=== PATIENT | female | born 1940 | race Caucasian/White ===

== ENCOUNTER 2022-05-30 11:29 | Outpatient (CLI) | payer OTHER, SELFPAY ==
[2022-05-30 11:32] VITALS: BP 160/66; PULSE 74; RESP 16; O2SAT 96
[2022-05-30] MEDS: TETRACAINE 0.5% OPHTH 1 DROP EYE-BOTH ×3 (11:47→12:11)
[2022-05-30] MEDS: BRIMONIDINE TARTRATE 0.2% OPHTH 1 DROP EYE-BOTH ×2 (11:49→12:22)
--- NOTE | 2022-05-30 12:27 | P.OPTPRC_ITS ---
Procedure Note Date of procedure: 05/30/22 Will [facility] bill your pro fee for this procedure?: Yes Procedure Description: SURGEON: Sagrario Núñez MD PREOPERATIVE DIAGNOSIS: Posterior capsular opacity, right and left eye POSTOPERATIVE DIAGNOSIS: Posterior capsular opacity, right and left eye PROCEDURE: YAG laser capsulotomy, both eyes ANESTHESIA: Topical. ESTIMATED BLOOD LOSS: None PATHOLOGY SPECIMEN: None COMPLICATIONS: None INDICATIONS: See consult note for details. The risks, benefits and alternatives of the procedure were explained to the patient, who elected to proceed and signed informed consent to do so. PROCEDURE: The patient was brought to the pre-holding area where the right and left eyes were identified as the operative eyes. I placed my initials above the eyes. The following was given in both eyes: The patient received 2 sets of 1 drop of 0.5% tetracaine and 1 drop of 1% tropicamide. They also received 1 drop of 0.2% brimonidine. They received 1 drop of 0.5% tetracaine immediately prior to bringing them back for the procedure. The patient was then brought to the procedure room where the right and left eyes were again identified as the operative eyes. A YAG Maurizio capsulotomy lens was placed on the right eye. The laser was administered using a total number of 6 shots with an energy of 2.4 mJ per shot for a total energy of 14 mJ. The patient tolerated the procedure well. A YAG Maurizio capsulotomy lens was placed on the left eye. The laser was administered using a total number of 4 shots with an energy of 2.4 mJ per shot for a total energy of 10 mJ. The patient tolerated the procedure well. DISPOSITION: The patient was taken back to the pre-holding area and given 1 drop of 0.2% brimonidine in both eyes. They were discharged to home in stable condition. The patient was instructed to call me or go to the emergency de partment with any sudden change, including dramatic loss of vision, severe pain in the eye or eyebrow region, nausea, or vomiting. The patient was instructed to use the 0.2% brimonidine 1 drop 2 times a day in both eyes for 1 week. The patient will follow up in the clinic in 1-2 weeks. Surgeon: Sagrario Núñez MD
== END 2022-05-30 12:23 | disposition home or self-care (01) ==
LOC: OP CLINIC 11:31
PROVIDERS: Visit Provider Ophthalmology
DX: H26.9 Unspecified cataract (principal)
CPT/HCPCS: 66821; A9270

== ENCOUNTER 2024-12-30 13:06 | Outpatient (CLI) | payer OTHER, SELFPAY | END 2024-12-30 13:07 | disposition home or self-care (01) | LOC: AMB 01-04 16:21 | PROVIDERS: Visit Provider Family Medicine | DX: R42 Dizziness and giddiness (principal); R07.89 Other chest pain | CPT/HCPCS: A0425; A0433 ==

== ENCOUNTER 2024-12-30 13:47 | Inpatient (IN) | payer OTHER, SELFPAY ==
[2024-12-30] VITALS (40 sets, daily range): BP systolic 99–148; BP diastolic 45–102; PULSE 56–137; RESP 10–18; TEMP 36.2–36.7; O2SAT 96–98; BMI 24.2; BMI 24.3; BMI 24.4
--- OUTSIDE RECORDS SUMMARY | 2024-12-30 13:49 | XMS_ITS | Clinical Summary ---
Author Organization [facility] Address [address] [place] [address] Care Team Providers Care Pediatric Pathologist Name Role Phone Eileen Chacon M.D. Primary Care Pro vider Source Comments Patient records contain information from all sites at [facility]. For routine questions regarding patient records, call [phone] during business hours, M-F 8:00 AM - 5:00 PM Central Time. Record requests for emergency care only can be directed to [phone] at any time.[facility] Allergies Active Allergy Reactions Criticality Noted Date Comments Lactose Diarrhea 04/23/2012 Medications aspirin [address] tablet Take 81 mg by mouth daily. Active multivitamin tablet Take 1 tablet by mouth daily. Active loratadine (for_CLARITIN) 10 mg tablet Take 10 mg by mouth daily. Active acetaminophen (TYLENOL) 500 mg tablet Take 500 mg by mouth every 6 (six) hours as needed for pain. Active vitamins A,C,E-zinc-jessica er (PRESERVISION AREDS) 7,160 Units-113 mg-100 Units per tablet Take 1 tablet by mouth 2 (two) times a day. Active alendronate (Fosamax) 70 mg tablet Take 1 tablet (70 mg total) by mouth once a week. Take with 8oz of water, on an empty stomach. Remain upright for 30min. 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 Med Refill 10/19/2024 2:30 PM CDT Office Visit Department of Family Medicine, [facility], in [address] [place] [address] Post, Ronald Ennis APRN, C.N.P. Onychomycosis (Primary Dx); Hypertrophied Nail Discharge Disposition: Home or Self Care from Last 3 Months Immunizations Immunization Administration Dates Next Due IPV 10/16/2004 PCV13 07/09/2018 PPSV23 01/10/2010,10/16/2004 RZV (SHINGRIX) 01/10/2023(Deferred: Patient dec ision) SARS-COV-2 (COVID-19) - MODE RNA (12 YEARS AND OLDER) Fall Seasonal 03/19/2023 SARS-COV-2 (COVID-19) - MODERNA(Discontinued) 01/10/2023(Deferred: Patient decision),06/17/2020,05/20/2020 Tdap 08/25/2020,10/18/2004 YF 10/16/2004 influenza trivalent high dos e (HD)(PF) 01/10/2023(Deferred: Patient decision) Family History Medical History Relation Name Comments Osteoarthritis Brother Kenya No Known Problems Daughter 2 Tamela Hearing loss Father Bebeto Lung cancer Father Bebeto Hypertension Mother Chitra Glaucoma Sister Taylor Heart murmur Sister Taylor Had breast canc er removed July of 2024 Bipolar disorder Son 1 John Guillain-[place] syndrome Son 1 John No Known Problems Son 2 Ramesh No Known Problems Son 3 Edward Relation Name Status Comments Brother Kenya Alive Daughter 1 Neeta Alive Daughter 2 Tamela Alive Father Bebeto Mother Chitra Sister Taylor Alive Son 1 John Alive Son 2 Ramesh Alive Son 3 Edward Alive Social History Tobacco Use Types Packs/Day Years Used Date Smoking Tobacco: Former Cigarettes Q uit: 04/01/1972 Smokeless Tobacco: Never Tobacco Cessation:Counseling Given: Not Answered Alcohol Use Standard Drinks/Week Comments Yes 4 (1 standard drink = 0.6 oz pur e alcohol) My drinking is 1 or2 a month [facility] [employer] Answer Date Recorded In the past 12 months has e electric, gas, oil, or water [employer] threatened to shut off services in your home? No 01/21/2024 Humiliation, Afraid, Rape, and Kick questionnair e Answer Date Recorded Within the last year, have y ou been afraid of your partner or ex-partner? No 01/10/2023 Within the last year, have y ou been humiliated or emotionally abused in other ways by your partner or ex-partner? No Within the last year, have y ou been kicked, hit, slapped, or otherwise physically hurt by your partner or ex-partner? No 01/10/2023 Within the last year, have y ou been raped or forced to have any kind of sexual activity by your partner or ex-partner? No 01/10/2023 Hunger Vital Sign Answer Date Recorded Within the past 12 months, y ou worried that your food would run out before you got the money to buy more. Never true 01/21/20 24 Within the past 12 months, t he food you bought just didn't last and you didn't have money to get more. Never true 01/21/2024 PRAPARE - Transportation Answer Date Re corded In the past 12 months, has l ack of transportation kept you from medical appointments or from getting medications? No 12/31 In the past 12 months, has l ack of transportation kept you from meetings, work, or from getting things needed for daily living? No 01/21/2024 Housing Stability Answer Date Recorded What is your living situation today? 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 Gender Identity Female 11/05/2022 4:38 PM CDT Sexual Orientation Not on file Occupation Industry Job Start Date Job End Date Not on file Not on file Not on file Not on file Last Filed Vital Signs Vital Sign Reading Time Taken Comments Blood Pressure 134/65 10/19/2024 2:01 PM CDT Pulse 63 10/19/2024 2:01 PM CDT Temperature 36.1 C (97 F) 10/19/2024 2:01 PM CDT Respiratory Rate 16 08/13/2024 3:11 PM CDT Oxygen Saturation 97% 01/10/2023 10:35 AM CDT Inhaled Oxygen Concentration - - Weight 71.8 kg (158 lb 4.6 oz) 10/19/2024 2:01 P M CDT Height 169 cm (5' 6.54) 10/19/2024 2:01 PM CDT Body Mass Index 25.14 10/19/2024 2:01 PM CDT Plan of Treatment Health Maintenance Due Date Last Done Comments CT Colonography 1940 FIT 1940 Zoster Vaccines (1 of 2) 1990 IPV Vaccines (2 of 3 - Adult catch-up series) 11/13/2004 10/16/2004 RSV vaccine - (32-3 6 weeks) or 60+ years (1 - 1-dose 75+ series) 10/10/2015 Colonoscopy 11/15/2015 11/14/2005 Cologuard 07/21/2022 07/22/2019, 04/26/2016 COVID-19 Vaccine (5 - 2024-2 6 season) 2024 03/19/2023, 02/01/2021, 06/17/2020, Additional history exists Influenza Vaccine (#1) 2024 02/24/2024 Fasting Glucose for Diabetes Screening 08/13/2025 08/13/2024, 11/06/2022, 08/24/2021, Additional history exists Visit: Medicare Annual Wellness 08/14/2025 Visit: Annual, age 65+ (or Medicare and <65) 10/19/2025 10/19/2024 DTaP,Tdap,and Td Vaccines (3 - Td or Tdap) 08/25/2030 08/25/2020, 10/18/2004 Pneumococcal vaccine (50+ years) Completed 07/09/2018, 01/10/2010, 10/16/2004 Fall Risk Screen (Annual) Completed 05/07/2024 Depression Screening (Annual PHQ-2) Completed 08/13/2024, 08/10/2024 Colorectal Cancer Screening Discontinued Procedures Procedure Name Priority Date/Time Associated Diagnosis Comments GLUCOSE, FASTING, S/P Routine 08/13/2024 11:40 AM CDT Screening Examination Diabetes Mellitus COLOGUARD Routine 07/22/2019 8:05 AM CDT Screening Cancer Colon from Last 3 Months or Most Recently Relevant to Health Maintenance Results * (ABNORMAL) Glucose, Fasting (08/13/2024 11:40 AM CDT) Glucose, P 105(H) 70 - 100 mg/dL 08/13/2024 1:53 PM CDT LKCY Last Intake 17 hr 08/13/2024 11:43 AM CDT CNFL Blood (Blood, Venous) 08/13/2024 11:40 AM CDT 08/13/2024 11:43 AM CDT Eileen Marshall M.D. LAB BLOOD NON ADD -ON Final Result [facility] [address] [place] [id number], [facility] LK[facility] in [place] [address] [place] [address] CNFL [facility] in [address] [address] * Cologuard (07/22/2019 8:05 AM CDT) Result Negative Not Applicable 07/25/2019 10:20 AM CDT EXLI Comment: A negative result indicates a low likelihood that a colorectal cancer (CRC) or an advanced adenoma (adenomatous polyps with more advanced pre-malignant features) is present. The chance that a person with a negative Cologuard test has a colorectal cancer is less than 1 in 1500 (negative predictive value >99.9%) or has an advanced adenoma is less than 5.3% (negative predictive value 94.7%). These data are based on a prospective cross-sectional screening study of 10,000 individuals at average risk for colorectal cancer who were screened with both Cologuard and colonoscopy. (Juan Platt al, N Engl J Med 2014;370(14):0008-4012) The normal value (reference range) for this assay is negative. COLOGUARD RE-SCREENING RECOMMENDATION: Periodic routine colorectal cancer screening is an important part of preventive healthcare for asymptomatic persons at average risk for colorectal cancer. Following a negative Cologuard result, the Canadian Cancer Society and U.S. Multi-Society Task Force screening guidelines recommend a Cologuard re-screening interval of 3 years. References: Canadian Cancer Society (ACS). Colorectal cancer prevention and early detection. [place], [place]: Canadian Cancer Society; [updated 2015Jul 23]. https://www.cancer.org/cancer/uejzb-sqncdr-wiojzx/detection- diagnosis-staging/acs-recommendations.html. Accessed November 29, 2017; Matthieu DK, Mario CR, Andrea ZacariasK, Colorectal Cancer Screening: Recommendations for Physicians and Patients from the U.S. Multi-Society Task Force on Colorectal Cancer Screening, Am J Gastroenterology 2017; 112:4709-2846. TEST TYPE: Composite algorithmic analysis of stool DNA-biomarkers with hemoglobin immunoassay. Quantitative values of individual biomarkers are not reportable and are not associated with individual biomarker result reference ranges. PRECAUTIONS AND LIMITATIONS: Cologuard is intended for colorectal cancer screening of adults of either sex, 45 years or older, who are at average-risk for colorectal cancer (CRC). Cologuard has been approved for use by the U.S. FDA. Cologuard may produce a false negative or false positive result. A negative Cologuard test result does not guarantee the absence of CRC or advanced adenoma (pre-cancer). Patients with a negative Cologuard test result should be advised to continue participating in a colorectal cancer screening program. The screening interval for Cologuard is currently recommended at an interval of every 3 years by the Canadian Cancer Society and U.S. Multi-Society Task Force. A false positive result occurs when Cologuard produces a positive result, even though a colonoscopy may not find colorectal cancer or precancerous polyps. The performance of Cologuard has been established in a cross sectional study (i.e., single point in time) of average-risk adults aged 50-84. Cologuard performance in patients ages 45 to 49 years was estimated by sub-group analysis of near-age groups. Cologuard performance data in a 10,000 patient pivotal study using colonoscopy as the reference method can be accessed at the following location: www.[employer]/results. Additional description of the Cologuard test process, warnings and precautions can be found at www.cologuardtest.com. Rx only. Stool (Stool) 07/22/2019 8:0 5 AM CDT 07/23/2019 10:12 AM CDT us Eileen Marshall M.D. 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 See document viewer. Healthcare Agents on File Name Relationship Healthcare Agent Relationship Communication Alexi Smith Spouse Health Care Agent Neeta Daniellemagalie Daughter First Alternate Health Care Agent Care Teams Pediatric Pathologist Relationship Specialty Start Date End Date Eileen Chacon M.D. [id number] [phone] PCP - General 09/13/16 [facility] 01/10/23 [facility] Op[facility]mol[facility] Kiln Furniture Caster 01/10/23 [facility]aker 01/10/23
--- OUTSIDE RECORDS SUMMARY | 2024-12-30 13:50 | XMS_ITS | Clinical Summary ---
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 Gender Identity Not on file Sexual Orientation Not on file Last Filed Vital Signs Vital Sign Reading Time Taken Comments Blood Pressure 118/72 01/06/2014 10:15 AM CDT Pulse 76 01/06/2014 10:15 AM CDT Temperature - - Respiratory Rate - - Oxygen Saturation - - Inhaled Oxygen Concentration - - Weight - - Height - - Body Mass Index - - Plan of Treatment Health Maintenance Due Date Last Done Comments Tetanus booster 10/10/1951 Depression screening for age 12+ 1952 BMI (ht and wt on same day) for age 18+ 1958 Pneumococcal series for age 50+ (1 of 1 - PCV) 1990 Zoster (shingles) series for age 50+ (1 of 2) 1990 DEXA/DXA scan for age 65+ 2005 Medicare Wellness for age 65+ 2005 RSV vaccine for adults or (1 - 1-dose 75+ series) 10/10/2015 COVID-19 vaccine series ( season) 2024 03/19/2023, 02/01/2021, 06/17/2020, Additional history exists Influenza Vaccine (#1) 2024 Hepatitis B series for 19+ Aged Out N o longer eligible based on patient's age to complete this topic Insurance [employer] CHOICE PPO MR Care Teams A Auxiliary Relationship Specialty Start Date End [facility] [address] [place] [phone] PCP - General Family Practice 11/09/13 Ivy Pepe AuD [facility] [place] [address] Audiology 11/09/13
--- NOTE | 2024-12-30 14:09 | CRLHL7_ITS ---
For Patients: As a result of the Cures Act, medical imaging exams and procedure reports are released immediately into your electronic medical record. You may view this report before your referring provider. If you have questions, please contact your health care provider. INDICATION: Shortness of breath, hypertension TECHNIQUE: Chest 1 view. COMPARISON: None. FINDINGS: Cardiovasculature and mediastinum: Heart size is normal. Unremarkable mediastinum. Lungs and pleural spaces: Bibasal patchy opacities. No pleural effusion. No pneumothorax. Bones and soft tissues: No significant findings. IMPRESSION: Bibasal patchy opacities may represent pulmonary edema or infection in the appropriate clinical setting Dictated by Jaylyn Crocker MD @ 12/30/2024 3:24:25 PM (Electronically Signed)
--- NOTE | 2024-12-30 14:14 | ED_ITS ---
HPI - General Adult General Chief complaint: Syncope/Fainted Stated complaint: Hypotension Time Seen by Provider: 12/30/24 13:48 History of Present Illness HPI narrative: 84-year-old female was working at the [employer] and got dizzy. She has said she has has intermittent dizziness. She was told a co-worker to sit down. She did not notice any focal neurologic complaint or weakness other than the generalized weakness. She had no chest pain no tachycardia. No palpitations. She was noted by EMS when she is brought in by ambulance to be in AFib with a rapid rate. Her rates been between 137 and 160. She denies chest pain, denies shortness of breath denies leg swelling or edema or clotting problems. She is only on alendronate for home medication. No recent illnesses, cough, colds. She has never been told she has atrial fibrillation or other cardiac arrhythmia. She has no history of coronary artery disease by her knowledge. Related Data Home Medications ?Medication ?Instructions ?Recorded ?Confirmed alendronate 70 mg tablet 70 mg PO 12/30/24 Allergies Allergy/AdvReac Type Severity Reaction Status Date / Time No Known Drug Allergies Allergy Verified 12/30/24 15:43 Review of Systems Status of ROS: Reports: 6 or more systems reviewed and unremarkable except as noted in History and below [facility] Medical History (Updated 12/30/24 @ 15:45 by Brii Jean MD) Hyperlipidemia ?E78.5 - Hyperlipidemia, unspecified (ICD-10) Osteoporosis ?M81.0 - Age-related osteoporosis without current pathological fracture (ICD- 10) Exam Narrative: Exam Narrative: Objective: Patient is alert orient x3 no distress. Does not feel palpitations or tachycardia. Her heart rates 137-160. Irregularly regular with a widened complex QRS. HEENT is unremarkable, no cyanosis, no scleral icterus, no facial asymmetry Neck is supple Chest is clear Heart irregular regular 2/6 systolic murmur Abdomen benign soft Extremities are no edema neurologic nonfocal. Good peripheral perfusion noted Const: Vital Signs, click to edit/add: Vital Signs - 24 hr 12/30/24 14:02 Temperature 97.2 F L Pulse Rate [Pulse Oximeter] 137 H Respiratory Rate 18 Blood Pressure [Ri ght Upper Arm] 136/89 Oxygen Delivery Me thod Room Air Course Vital Signs Vital signs: Initial Vital Signs Temperature 97.2 F L 12/30/24 14:02 Temperature Source Temporal Artery Scan 12/30/24 14:02 Pulse Rate 137 H 12/30/24 14:02 Respiratory Rate 18 12/30/24 14:02 Blood Pressure 136/89 12/30/24 14:02 Blood Pressure Mean 104 12/30/24 14:02 Blood Pressure Position Sitting 12/30/24 14:02 Oxygen Delivery Method Room Air 12/30/24 14:02 Vital Signs Temperature 97.2 F L 12/30/24 14:02 Pulse Rate 137 H 12/30/24 14:02 Respiratory Rate 18 12/30/24 14:02 Blood Pressure 136/89 12/30/24 14:02 Oxygen Delivery Method Room Air 12/30/24 14:02 Temperature 97.2 F L 12/30/24 14:02 Pulse Rate 137 H 12/30/24 14:02 Respiratory Rate 18 12/30/24 14:02 Blood Pressure 136/89 12/30/24 14:02 Oxygen Delivery Method Room Air 12/30/24 14:02 Medications Administered Medications: Generic Name Dose Route Start Last Admin Trade Name Freq PRN Reason Stop Dose Admin Diltiazem HCl 125 mg/ Sodium 125 mls @ 5 mls/hr 12/30/24 15:05 12/30/24 15:39 Chloride IVPB 5 mls/hr .TITRATE DIXIE Administration Protocol Discontinued Medications Generic Name Dose Route Start Last Admin Trade Name Freq PRN Reason Stop Dose Admin Aspirin 324 mg 12/30/24 14:09 12/30/24 14:37 Aspirin 81 Mg Tab.Chew PO 12/30/24 14:10 324 mg ONCE ONE Administration Diltiazem HCl 18 mg 12/30/24 14:09 12/30/24 14:40 Diltiazem 5 Mg/Ml Inj IVP 12/30/24 14:10 18 mg ONCE ONE Administration Enoxaparin Sodium 70 mg 12/30/24 14:30 12/30/24 14:38 Enoxaparin 80 Mg/0.8 Ml Inj SUBCUT 12/30/24 14:31 70 mg ONCE ONE Administration Sodium Chloride 500 mls @ 500 mls/hr 12/30/24 14:09 12/30/24 15:38 0.9 % Sodium Chloride 500 Ml IV 12/30/24 15:08 Infused .Q1H ONE Infusion Medical Decision Making MDM Narrative Medical decision making narrative: 84-year-old female with a history of dizziness today, with noted atrial fibrillation with rapid ventricular rate. She felt ill today but unclear exactly when this might have started. She does not notice tachycardia now or palpitations even despite her rapid rate. My concern to be I can not really time the onset of this issue. Although certainly could have been today. I think at this point we will anticoagulate her with Lovenox, will give IV bolus of diltiazem to slow her rate some IV fluid, check electrolytes labs troponin. Disposition pending findings above. Patient will get monitoring specialist, oximeter, IV fluid as mention. Will check electrolytes and labs. EKG by my independent interpretation shows AFib with rapid regular rate with a widened QRS. Hospitalist has accepted after CTA will be ordered in route to the hospital floor. Lab Data Labs: Lab Results 12/30/24 12/30/24 12/30/24 Range/Units 14:10 14:27 14:48 WBC 7.81 (4.50-11.00) K/uL RBC 5.82 H (4.00-5.20) m/uL Hgb 16.1 H (12.0-16.0) gm/dL Hct 48.8 (33.0-51.0) % MCV 84 (80-100) fL MCH 28 (26-34) pg MCHC 33 (32-36) gm/dL RDW Coeff of Joselito 13.9 (11.5-15.5) % Plt Count 253 (140-440) K/uL Neut % (Auto) 69.6 (42.0-72.0) % Lymph % (Auto) 21.4 (20-44) % Terrell % (Auto) 7.6 (0.0-11.0) % Eos % (Auto) 0.8 (0.0-7.0) % Baso % (Auto) 0.5 (0.0-3.0) % Neut # (Auto) 5.44 (1.7-7.0) K/uL Lymph # (Auto) 1.67 (0.90-2.90) K/uL Terrell # (Auto) 0.60 (0.00-0.90) K/UL Eos # (Auto) 0.06 (0.00-0.50) K/uL Baso # (Auto) 0.04 (0.00-0.30) K/uL Abs Immat Gran (auto) 0.01 (0.00-0.30) K/uL Imm/Tot Granulo (auto) 0.1 % Sodium 137 (135-149) mmol/L Potassium 4.4 (3.6-5.1) mmol/L Chloride 102 (96-114) mmol/L Carbon Dioxide 26 (20-32) mmol/L Anion Gap 9 (7-15) mEq/L BUN 20 (7-30) mg/dL Creatinine 0.8 (0.5-1.5) mg/dL Estimated Creat Clear 39.20 Estimated GFR 73 ml/min Glucose 115 (60-115) mg/dL Calcium 9.8 (8.4-10.6) mg/dL Magnesium 2.1 (1.5-2.6) mg/dL Total Bilirubin 0.7 (0.1-1.5) mg/dL Direct Bilirubin 0.2 (0.0-0.5) mg/dL AST 38 H (12-35) U/L ALT 30 (4-35) U/L Alkaline Phosphatase 111 (40-150) U/L NT-Pro-B Natriuret Pep 325 H (See Note) pg/mL Total Protein 7.3 (6.0-8.3) g/dL Albumin 4.2 (3.3-5.0) g/dL Lab Acknowledgement POC Troponin I 0.01 (0.01-0.04) ng/ml 12/30/24 Range/Units 15:41 WBC (4.50-11.00) K/uL RBC (4.00-5.20) m/uL Hgb (12.0-16.0) gm/dL Hct (33.0-51.0) % MCV (80-100) fL MCH (26-34) pg MCHC (32-36) gm/dL RDW Coeff of Joselito (11.5-15.5) % Plt Count (140-440) K/uL Neut % (Auto) (42.0-72.0) % Lymph % (Auto) (20-44) % Terrell % (Auto) (0.0-11.0) % Eos % (Auto) (0.0-7.0) % Baso % (Auto) (0.0-3.0) % Neut # (Auto) (1.7-7.0) K/uL Lymph # (Auto) (0.90-2.90) K/uL Terrell # (Auto) (0.00-0.90) K/UL Eos # (Auto) (0.00-0.50) K/uL Baso # (Auto) (0.00-0.30) K/uL Abs Immat Gran (auto) (0.00-0.30) K/uL Imm/Tot Granulo (auto) % Sodium (135-149) mmol/L Potassium (3.6-5.1) mmol/L Chloride (96-114) mmol/L Carbon Dioxide (20-32) mmol/L Anion Gap (7-15) mEq/L BUN (7-30) mg/dL Creatinine (0.5-1.5) mg/dL Estimated Creat Clear Estimated GFR ml/min Glucose (60-115) mg/dL Calcium (8.4-10.6) mg/dL Magnesium (1.5-2.6) mg/dL Total Bilirubin (0.1-1.5) mg/dL Direct Bilirubin (0.0-0.5) mg/dL AST (12-35) U/L ALT (4-35) U/L Alkaline Phosphatase (40-150) U/L NT-Pro-B Natriuret Pep (See Note) pg/mL Total Protein (6.0-8.3) g/dL Albumin (3.3-5.0) g/dL Lab Acknowledgement Test Added POC Troponin I (0.01-0.04) ng/ml Discharge Plan Discharge Clinical Impression: Atrial fibrillation with rapid ventricular response Patient Disposition: Admitted As Inpatient
[2024-12-30 14:35] LABS: Hematocrit* 48.8 % (33.0-51.0); Hemoglobin* 16.1 gm/dL (12.0-16.0); Immature Granulocytes Abs Auto 0.01 K/uL (0.00-0.30); Immature Granulocytes Pct Auto 0.1 %; Lymphocytes Absolute Auto 1.67 K/uL (0.90-2.90); Mean Corpuscular HGB Conc 33 gm/dL (32-36); Mean Corpuscular Hemoglobin 28 pg (26-34); Mean Corpuscular Volume 84 fL (80-100); RDW Coefficient of Variation % 13.9 % (11.5-15.5); Red Blood Count* 5.82 m/uL (4.00-5.20); White Blood Count* 7.81 K/uL (4.50-11.00)
[2024-12-30 14:36] LABS: Slide Review Reflex No
[2024-12-30] MEDS: 0.9 % SODIUM CHLORIDE 500 ML 500 ML IV (14:36)
[2024-12-30] MEDS: ASPIRIN 81 MG TAB.CHEW 324 MG PO (14:37)
[2024-12-30] MEDS: ENOXAPARIN 80 MG/0.8 ML INJ 70 MG SUBCUT (14:38)
[2024-12-30] MEDS: dilTIAZem 5 MG/ML inj 18 MG IVP (14:40)
[2024-12-30 14:46] LABS: Troponin, Point-of-Care* 0.01 ng/ml (0.01-0.04)
[2024-12-30 14:47] LABS: Albumin* 4.2 g/dL (3.3-5.0); Chloride* 102 mmol/L (96-114); Potassium* 4.4 mmol/L (3.6-5.1); Sodium* 137 mmol/L (135-149)
[2024-12-30 14:49] LABS: Blood Urea Nitrogen* 20 mg/dL (7-30); Creatinine* 0.8 mg/dL (0.5-1.5); Est. Creatinine Clearance* 39.20; Estimated Glomerular Filt Rate 73 ml/min
[2024-12-30 14:50] LABS: Alanine Aminotransferase* 30 U/L (4-35); Alkaline Phosphatase* 111 U/L (40-150); Anion Gap 9 mEq/L (7-15); Aspartate Amino Transferase* 38 U/L (12-35); Bilirubin Direct* 0.2 mg/dL (0.0-0.5); Bilirubin Total* 0.7 mg/dL (0.1-1.5); Calcium* 9.8 mg/dL (8.4-10.6); Carbon Dioxide* 26 mmol/L (20-32); Glucose* 115 mg/dL (60-115); Total Protein* 7.3 g/dL (6.0-8.3)
[2024-12-30 15:08] LABS: NT Pro B Type NatriureticPept* 325 pg/mL (See Note)
--- NOTE | 2024-12-30 15:21 | CRLHL7_ITS ---
For Patients: As a result of the Century Cures Act, medical imaging exams and procedure reports are released immediately into your electronic medical record. You may view this report before your referring provider. If you have questions, please contact your health care provider. Indication: NEW A-FIB Technique: CTA chest, pulmonary embolism protocol, utilizing 95 mL Isovue 370 IV contrast Comparison: None Findings: Slightly enlarged, heterogeneously enhancing right thyroid gland with a few punctate calcifications with no discretely imaged nodule. There are few small subcarinal lymph nodes without pathologic enlargement. No pathologically enlarged lymph nodes throughout the thorax. The heart is normal in size. No CT evidence of acute right heart strain. No pericardial effusion. Coronary artery calcifications. The thoracic aorta and pulmonary artery are normal in caliber. There is no pulmonary embolism. No focal airspace consolidation, pleural effusion, or pneumothorax. Trace bibasilar atelectasis. Spiculated pulmonary nodule in the posterolateral aspect of the right lower lobe measuring approximately 1.5 centimeters AP x 1.9 centimeters transverse by 2.0 centimeters craniocaudal (series number 4, image 115; series number 6, image 184). The airways are clear. The imaged upper abdomen is without acute abnormality. Cholelithiasis. The soft tissues and bones are unremarkable. Impression: 1. Spiculated pulmonary nodule in the posterolateral aspect of the right lower lobe measuring up to 2.0 centimeters in greatest dimension, concerning for primary lung malignancy. Recommend outpatient consultation with pulmonology and direct tissue sampling versus PET-CT. 2. No CT evidence of an acute process involving the thorax; specifically, no pulmonary embolism. 3. There are few small subcarinal lymph nodes without pathologic enlargement, indeterminate. No pathologically enlarged lymph nodes throughout the thorax. 4. Slightly enlarged, heterogeneously enhancing right thyroid gland with a few punctate calcifications with no discretely imaged nodule. This can be further assessed with an outpatient thyroid ultrasound if not recently performed. Please note that all CT scans at this facility use dose modulation, iterative reconstruction, and/or weight-based dosing when appropriate to reduce radiation dose to as low as reasonably achievable. Dictated by Cleve Palencia MD @ 12/30/2024 4:11:29 PM (Electronically Signed)
[2024-12-30] MEDS: dilTIAZem HCL 125 MG in 0.9 % SODIUM CHLORIDE 100 ml 100 ML IVPB (15:39)
--- NOTE | 2024-12-30 16:29 | PM.IMHP1 ---
Assessment and Plan Assessment and plan (1) Atrial fibrillation with rapid ventricular response: Problem comment: - new diagnosis on 12/30/2024, although history suggests she has had paroxysmal episodes in the past - [id number] of 3 (A1c pending), amenable to Eliquis initiation after risk and benefit discussion - diltiazem drip initiated in the emergency room; will continue this for rate control, transition to oral medications as tolerated - TTE ordered to evaluate cardiac structure and EF Status: Acute (2) Mass of right lung: Problem comment: - incidental finding on 12/30/24 imaging - patient and daughter aware, will f/u with PCP Status: Acute (3) Thyroid nodule: Problem comment: - incidentally noted on 12/30/24 imaging; patient aware and has had this worked up previously (benign) Status: Acute Plan - per above - requires inpatient level of care given new a fib/RVR, need for diltiazem drip - daughter Neeta updated bedside, questions answered Hospitalist- H&P: HPI History of Present Illness Date Seen: 12/30/24 Chief complaint: Hypotension Narrative: Margaret Smith is a 84 year old female who was working at the local [employer] this morning when she had abrupt onset of dizziness and presyncope. EMS was called and noted new diagnosis of AFib with RVR, HR 130-160s. ER: - found to be in AFib with RVR on initial EKG - given Diltiazem bolus IV without improvement; then Diltiazem drip initiated - Chest CT obtained; no PE but spiculated mass R lung incidentally noted Margaret is admitted for management of new a fib/RVR. Upon further questioning, she has had episodes in the past of short periods of time feeling dizzy and faint, has never checked her pulse during these times. She was unaware that she was in AFib this morning. Review of Systems Status of ROS: Reports: 10 or more systems reviewed and unremarkable except as noted in History and below Narrative: - specifically denies chest pain, orthopnea, PND, MOSS - no lower extremity edema Medical Decision Making Medical Decision Making Code Status: Full, with no desire for lengthy intubation. Quality of life is important During This Stay, Who Would You Like To Make Decisions For You In The Event You Are Unable To Make Them For Yourself?: Daughter Neeta [facility] Medical History (Updated 12/30/24 @ 18:22 by Brii Jean MD) Thyroid nodule ?E04.1 - Nontoxic single thyroid nodule (ICD-10) Hyperlipidemia ?E78.5 - Hyperlipidemia, unspecified (ICD-10) Osteoporosis ?M81.0 - Age-related osteoporosis without current pathological fracture (ICD-10) Social History (Updated 12/30/24 @ 17:35 by Brii Jean MD) Narrative: [place] with , who has cognitive impairment. Exercises regularly and volunteers at the [employer] weekly. Former smoker, quit in the 70s, no concerning alcohol use. Full code, daughter Neeta (medical billing representative) would be medical decision maker if needed. What is your current living situation?: I presently have a place to live Problems where you live: no known problems Problems where you live details: N/A In the past 12 months, utilities in danger of being shut off: no In past 12 months, lack of transportation kept you from medical appts, meetings, work, or getting things needed for daily living: no In the past 12 mos, have been you worried that your food would run out before you had money to buy more?: never true In the past 12 mos, the food you bought just didn't last and you didn't have money to buy more?: never true Smoking Status: Never smoker Do you use any of these nicotine containing products: None How often do you have a drink containing alcohol: monthly or less AUDIT-C Alcohol total score: 1 Non-prescribed substance use: denies use How often does anyone, including family, friends and others, physically hurt you: never How often does anyone, including family, friends and others, insult or talk down to you: never How often does anyone, including family, friends and others, threaten you with harm: never How often does anyone, including family, friends and others, scream or curse at you: never Meds Home Medications and Allergies Home Medications ?Medication ?Instructions ?Recorded ?Confirmed ?Type acetaminophen 500 mg tablet 500 - 1,000 mg PO Q6H PRN 12/30/24 12/30/24 History alendronate 70 mg tablet 70 mg PO .Saturday12/30/24 12/30/24 History aspirin 81 mg tablet 81 mg PO HS 12/30/24 12/30/24 History loratadine 10 mg tablet 10 mg PO DAILY 12/30/24 12/30/24 History multivitamin (Multiple Vitamins 1 tab PO DAILY 12/30/24 12/30/24 History tablet) naproxen sodium 220 mg tablet 220 mg PO DAILY PRN 12/30/24 12/30/24 History (Aleve) vitamins A,C,O-udql-mslkgn 4,296 1 cap PO BID 12/30/24 12/30/24 History mcg-226 mg-90 mg capsule (PreserVision AREDS) Allergies Allergy/AdvReac Type Severity Reaction Status Date / Time No Known Drug Allergies Allergy Verified 12/30/24 15:43 Exam Narrative: Exam Narrative: GEN: Alert and oriented, sitting comfortably in bedside chair and answering questions appropriately HEENT: EOMIs bilaterally, no scleral icterus CV: RRR, No concerning murmurs, rubs, or gallops R: LCTA bilaterally without concerning wheezing or rales Ext: wwp, no concerning edema Skin: No concerning skin lesions or rashes on exposed skin Neuro: No focal deficits, gait not observed Psych: Appropriate Const: Vital Signs, click to edit/add: Vital Signs - 24 hr 12/30/24 14:02 12/30/24 14:31 12/30/24 14:42 Temperature 97.2 F L Pulse Rate 109 H 112 H Pulse Rate [Pulse Oximeter] 137 H Respiratory Rate 18 18 16 Blood Pressure 114/65 124/93 H Blood Pressure [Ri ght Upper Arm] 136/89 Pulse [facility]ximetry 97 [facility] 12/30/24 14:51 12/30/24 15:02 12/30/24 15:21 Temperature Pulse Rate 103 H 94 103 H Pulse Rate [Pulse Oximeter] Respiratory Rate 10 L 18 16 Blood Pressure 110/73 133/86 148/93 H Blood Pressure [Ri ght Upper Arm] Pulse Oximetry 96 97 [facility] 12/30/24 15:53 12/30/24 16:01 Temperature Pulse Rate 110 H Pulse Rate [Pulse Oximeter] Respiratory Rate 18 16 Blood Pressure 131/96 H 126/102 H Blood Pressure [Ri ght Upper Arm] Pulse Oximetry 96 Oxygen Delivery [facility] Hospitalist - H&P: Result Labs Labs: Short CBC 12/30/24 Range/Units 14:27 WBC 7.81 (4.50-11.00) K/uL Hgb 16.1 H (12.0-16.0) gm/dL Hct 48.8 (33.0-51.0) % Plt Count 253 (140-440) K/uL BMP 12/30/24 14:27 Sodium 137 Potassium 4.4 Chloride 102 Carbon Dioxide 26 BUN 20 Creatinine 0.8 Glucose 115 Calcium 9.8 Liver Function 12/30/24 Range/Units 14:27 Total Bilirubin 0.7 (0.1-1.5) mg/dL Direct Bilirubin 0.2 (0.0-0.5) mg/dL AST 38 H (12-35) U/L ALT 30 (4-35) U/L Alkaline Phosphatase 111 (40-150) U/L Albumin 4.2 (3.3-5.0) g/dL
[2024-12-30] MEDS: MAGNESIUM IV 2 GM/50 ML PIGGYBACK IVPB (18:14)
[2024-12-30] MEDS: SODIUM CHLORIDE 0.9 % (FLUSH) 10 ML SYRINGE 5 ML IVF (22:35)
--- NOTE | 2024-12-30 23:36 | PC.NURSE ---
End of Shift: Patient admitted to 245. Pleasant and cooperative. Afebrile. Denies pain. Tele showing a-fib with heart rate in the 110-130s. Diltiazem drip titrated per MD and protocol. Patient converted to NSR approx 1945 and drip decreased to 5mL/hr per MD. Oral diltiazem given and drip stopped at 2230 per MD. Patient up with SBA and denies any lightheadedness or dizziness. Tolerating regular diet with no nausea.
[2024-12-31] VITALS (12 sets, daily range): BP systolic 106–155; BP diastolic 43–66; PULSE 56–68; RESP 14–16; TEMP 36.3–36.6; O2SAT 94–99
--- NOTE | 2024-12-31 06:20 | PC.NURSE ---
Pt alert and oriented x3. Afebrile. Pt's tele has been NSR throughout night. Pt is up SBA voiding, and tolerating a regular diet. Pt slept throughout most of night.
[2024-12-31 06:41] LABS: Hematocrit* 43.7 % (33.0-51.0); Hemoglobin* 14.0 gm/dL (12.0-16.0); Immature Granulocytes Abs Auto 0.01 K/uL (0.00-0.30); Immature Granulocytes Pct Auto 0.2 %; Lymphocytes Absolute Auto 2.47 K/uL (0.90-2.90); Mean Corpuscular HGB Conc 32 gm/dL (32-36); Mean Corpuscular Hemoglobin 27 pg (26-34); Mean Corpuscular Volume 85 fL (80-100); RDW Coefficient of Variation % 14.3 % (11.5-15.5); Red Blood Count* 5.13 m/uL (4.00-5.20); White Blood Count* 6.52 K/uL (4.50-11.00)
[2024-12-31 06:49] LABS: Slide Review Reflex No
[2024-12-31 06:51] LABS: Chloride* 108 mmol/L (96-114); Potassium* 4.3 mmol/L (3.6-5.1); Sodium* 139 mmol/L (135-149)
[2024-12-31 06:54] LABS: Blood Urea Nitrogen* 22 mg/dL (7-30); Creatinine* 0.7 mg/dL (0.5-1.5); Est. Creatinine Clearance* 40.72; Estimated Glomerular Filt Rate 85 ml/min
[2024-12-31 06:55] LABS: Anion Gap 1 mEq/L (7-15); Calcium* 8.7 mg/dL (8.4-10.6); Carbon Dioxide* 30 mmol/L (20-32); Glucose* 105 mg/dL (60-115)
--- NOTE | 2024-12-31 07:21 | P.IMPN_ITS ---
Assessment and Plan Assessment and plan (1) Atrial fibrillation with rapid ventricular response: Problem comment: - new diagnosis on 12/30/2024, although history suggests she has had paroxysmal episodes in the past - [id number] of 3 (A1c pending), amenable to Eliquis initiation after risk and benefit discussion - diltiazem drip initiated in the emergency room; will continue this for rate control, transition to oral medications as tolerated - TTE ordered to evaluate cardiac structure and EF Status: Acute (2) Mass of right lung: Problem comment: - incidental finding on 12/30/24 imaging - patient and daughter aware, will f/u with PCP Status: Acute (3) Thyroid nodule: Problem comment: - incidentally noted on 12/30/24 imaging; patient aware and has had this worked up previously (benign) Status: Acute Total Time Spent Total Time Spent: Today I spent 50 minutes seeing the patient, reviewing Expanse and EPIC notes/diagnostics, discussing the care plan with our care time that includes so cial work, PT/OT, pharmacy, RT, long term and documenting my impressions and plan in the medical record. Subjective Interval history: No acute events overnight patient converted to sinus rhythm around 9:00 p.m. yesterday. She will be started on apixaban for stroke prevention. Exam Narrative: Exam Narrative: Physical exam GENERAL: Comfortable, no acute distress. HEAD AND NECK: Atraumatic, normocephalic CARDIOVASCULAR: RRR. Normal S1, S2. No murmurs. RESPIRATORY: Clear to auscultation B/L. Good air entry B/L. No wheezes or rhonchi. NEUROLOGY: Alert, awake, oriented X 3. Normal speech. PSYCH: Normal mood, normal affect. Const: Vital Signs, click to edit/add: Vital Signs - 24 hr 12/30/24 14:02 12/30/24 14:31 12/30/24 14:42 Temperature 97.2 F L Pulse Rate 109 H 112 H Pulse Rate [Left A pical] Pulse Rate [Pulse Oximeter] 137 H Respiratory Rate 18 18 16 Blood Pressure 114/65 124/93 H Blood Pressure [Ri ght Arm] Blood Pressure [Ri ght Upper Arm] 136/89 Pulse Oximetry 97 98 Oxygen Delivery Me thod Room Air 12/30/24 14:51 12/30/24 15:02 12/30/24 15:21 Temperature Pulse Rate 103 H 94 103 H Pulse Rate [Left A pical] Pulse Rate [Pulse Oximeter] Respiratory Rate 10 L 18 16 Blood Pressure 110/73 133/86 148/93 H Blood Pressure [Ri ght Arm] Blood Pressure [Ri ght Upper Arm] Pulse Oximetry 96 97 96 Oxygen Delivery De thod 12/30/24 15:53 12/30/24 16:01 12/30/24 16:15 Temperature 97.3 F L Pulse Rate 110 H Pulse Rate [Left A pical] 122 H Pulse Rate [Pulse Oximeter] Respiratory Rate 18 16 16 Blood Pressure 131/96 H 126/102 H Blood Pressure [Ri ght Arm] 109/63 Blood Pressure [Ri ght Upper Arm] Pulse Oximetry 96 97 Oxygen Delivery [facility] Room Air 12/30/24 16:30 12/30/24 16:45 12/30/24 16:55 Temperature Pulse Rate 104 H Pulse Rate [Left A pical] 122 H 107 H Pulse Rate [Pulse Oximeter] Respiratory Rate Blood Pressure Blood Pressure [Ri ght Arm] 126/98 H 101/60 Blood Pressure [Ri ght Upper Arm] P[facility] Oximetry [facility] 17:00 12/30/24 17:02 12/30/24 17:15 Temperature Pulse Rate Pulse Rate [Left A pical] 116 H 118 H Pulse Rate [Pulse Oximeter] Respiratory Rate 16 Blood Pressure Blood Pressure [Ri ght Arm] 113/62 104/83 Blood Pressure [Ri ght Upper Arm] Pulse Oximetry [facility] 12/[facility]/24 17:30 12/30/24 17:45 12/30/24 18:00 Temperature Pulse Rate Pulse Rate [Left A pical] 107 H 109 H 118 H Pulse Rate [Pulse Oximeter] Respiratory Rate Blood Pressure Blood Pressure [Ri ght Arm] 136/99 H 108/81 122/85 Blood Pressure [Ri ght Upper Arm] Pulse Oximetry [facility] 12[facility] 18:15 12/30/24 18:30 12/30/24 18:45 Temperature Pulse Rate Pulse Rate [Left A pical] 124 H 136 H 114 H Pulse Rate [Pulse Oximeter] Respiratory Rate Blood Pressure Blood Pressure [Ri ght Arm] 104/90 H 120/87 116/78 Blood Pressure [Ri ght Upper Arm] Pulse Oximetry Oxygen Delivery Me thod 12/30/24 19:00 12/30/24 19:15 12/30/24 19:30 Temperature Pulse Rate Pulse Rate [Left A pical] 101 H 89 67 Pulse Rate [Pulse Oximeter] Respiratory Rate Blood Pressure Blood Pressure [Ri ght Arm] 108/67 106/77 100/55 L Blood Pressure [Ri ght Upper Arm] Pulse Oximetry Oxygen Delivery De thod 12/30/24 19:45 12/30/24 19:45 12/30/24 20:00 Temperature Pulse Rate 64 Pulse Rate [Left A pical] 65 65 Pulse Rate [Pulse Oximeter] Respiratory Rate Blood Pressure Blood Pressure [Ri ght Arm] 99/60 127/76 Blood Pressure [Ri ght Upper Arm] Pulse Oximetry [facility] 20:15 12/30/24 20:30 12/30/24 20:45 Temperature 98.1 F Pulse Rate Pulse Rate [Left A pical] 62 61 63 Pulse Rate [Pulse Oximeter] Respiratory Rate 16 Blood Pressure Blood Pressure [Ri ght Arm] 106/58 L 105/55 L 102/52 L Blood Pressure [Ri ght Upper Arm] Pulse Oximetry 97 [facility] 12/30/24 21:00 12/30/24 21:15 12/30/24 21:30 Temperature Pulse Rate Pulse Rate [Left A pical] 61 58 L 62 Pulse Rate [Pulse Oximeter] Respiratory Rate Blood Pressure Blood Pressure [Ri ght Arm] 108/55 L 114/53 L 105/54 L Blood Pressure [Ri ght Upper Arm] Pulse Oximetry [facility] 12/30/24 21:45 12/30/24 22:00 12/30/24 22:15 Temperature Pulse Rate Pulse Rate [Left A pical] 65 62 62 Pulse Rate [Pulse Oximeter] Respiratory Rate Blood Pressure Blood Pressure [Ri ght Arm] 109/53 L 109/52 L 120/51 L Blood Pressure [Ri ght Upper Arm] Pulse Oximetry Oxygen Delivery De thod 12/30/24 22:30 12/30/24 22:45 12/30/24 22:53 Temperature Pulse Rate Pulse Rate [Left A pical] 61 58 L 56 L Pulse Rate [Pulse Oximeter] Respiratory Rate Blood Pressure Blood Pressure [Ri ght Arm] 115/45 L 108/49 L 108/54 L Blood Pressure [Ri ght Upper Arm] Pulse Oximetry Oxygen Delivery Me thod 12/30/24 23:00 12/30/24 23:30 12/30/24 23:30 Temperature Pulse Rate 57 L Pulse Rate [Left A pical] 56 L Pulse Rate [Pulse Oximeter] Respiratory Rate 16 Blood Pressure Blood Pressure [Ri ght Arm] Blood Pressure [Ri ght Upper Arm] Pulse Oximetry 98 Oxygen Delivery Me thod Room Air 12/31/24 00:00 12/31/24 02:00 12/31/24 02:38 Temperature 97.9 F Pulse Rate Pulse Rate [Left A pical] 56 L 60 66 Pulse Rate [Pulse Oximeter] Respiratory Rate 16 16 14 Blood Pressure Blood Pressure [Ri ght Arm] 111/53 L 108/43 L 106/61 Blood Pressure [Ri ght Upper Arm] Pulse Oximetry 96 94 99 Oxygen Delivery De thod Room Air Room Air Room Air 12/31/24 04:00 12/31/24 04:05 12/31/24 04:05 Temperature 97.9 F Pulse Rate 57 L Pulse Rate [Left A pical] 57 L 57 L Pulse Rate [Pulse Oximeter] Respiratory Rate 14 14 Blood Pressure Blood Pressure [Ri ght Arm] 113/61 Blood Pressure [Ri ght Upper Arm] Pulse Oximetry 98 Oxygen Delivery Me thod Room Air 12/31/24 06:00 12/31/24 06:45 Temperature 97.4 F L Pulse Rate 56 L Pulse Rate [Left A pical] 68 Pulse Rate [Pulse Oximeter] Respiratory Rate 16 Blood Pressure Blood Pressure [Ri ght Arm] 108/48 L Blood Pressure [Ri ght Upper Arm] Pulse Oximetry 95 Oxygen Delivery De thod Room Air Labs Labs: Laboratory Results - last 24 hr 12/30/24 12/30/24 12/30/24 14:10 14:27 14:48 WBC 7.81 RBC 5.82 H Hgb 16.1 H Hct 48.8 MCV 84 MCH 28 MCHC 33 RDW Coeff of Joselito 13.9 Plt Count 253 Neut % (Auto) 69.6 Lymph % (Auto) 21.4 [place] % (Auto) 7.6 Eos % (Auto) 0.8 Baso % (Auto) 0.5 Neut # (Auto) 5.44 Lymph # (Auto) 1.67 [place] # (Auto) 0.60 Eos # (Auto) 0.06 Baso # (Auto) 0.04 Abs Immat Gran (auto) 0.01 Imm/Tot Granulo (auto) 0.1 Sodium 137 Potassium 4.4 Chloride 102 Carbon Dioxide 26 Anion Gap 9 BUN 20 Creatinine 0.8 Estimated Creat Clear 39.20 Estimated GFR 73 Glucose 115 Hemoglobin A1c 5.5 Calcium 9.8 Magnesium 2.1 Total Bilirubin 0.7 Direct Bilirubin 0.2 AST 38 H ALT 30 Alkaline Phosphatase 111 NT-Pro-B Natriuret Pep 325 H Total Protein 7.3 Albumin 4.2 TSH 0.695 Lab Acknowledgement POC Troponin I 0.01 12/30/24 12/30/24 12/31/24 15:41 16:30 06:30 WBC 6.52 RBC 5.13 Hgb 14.0 Hct 43.7 MCV 85 MCH 27 MCHC 32 RDW Coeff of Joselito 14.3 Plt Count 242 Neut % (Auto) 50.4 Lymph % (Auto) 37.9 Sierra % (Auto) 9.5 Eos % (Auto) 1.5 Baso % (Auto) 0.5 Neut # (Auto) 3.29 Lymph # (Auto) 2.47 Sierra # (Auto) 0.60 Eos # (Auto) 0.10 Baso # (Auto) 0.03 Abs Immat Gran (auto) 0.01 Imm/Tot Granulo (auto) 0.2 Sodium 139 Potassium 4.3 Chloride 108 Carbon Dioxide 30 Anion Gap 1 L BUN 22 Creatinine 0.7 Estimated Creat Clear 40.72 Estimated GFR 85 Glucose 105 Hemoglobin A1c Calcium 8.7 Magnesium Total Bilirubin Direct Bilirubin AST ALT Alkaline Phosphatase NT-Pro-B Natriuret Pep Total Protein Albumin TSH Lab Acknowledgement Test Added Test Added POC Troponin I
[2024-12-31] MEDS: SODIUM CHLORIDE 0.9 % (FLUSH) 10 ML SYRINGE 5 ML IVF (08:30)
[2024-12-31] MEDS: LORATADINE 10 MG TABLET PO (08:30)
--- NOTE | 2024-12-31 11:50 | P.DS_ITS ---
DS: Providers Provider Date Seen: 12/31/24 Date of admission: 12/30/24 16:15 Primary care physician: Eileen Meek MD Admitting Clinician: Brii Jean MD Attending Physician on discharge: Brii Jean MD DS: Diagnosis Discharge Diagnosis (1) Atrial fibrillation with rapid ventricular response: Status: Acute Problem details: - new diagnosis on 12/30/2024, although history suggests she has had paroxysmal episodes in the past - [id number] of 3 (A1c pending), amenable to Eliquis initiation after risk and benefit discussion - diltiazem drip initiated in the emergency room; will continue this for rate control, transition to oral medications as tolerated - TTE ordered to evaluate cardiac structure and EF - No acute events overnight patient converted to sinus rhythm around 9:00 p.m. yesterday. She will be started on apixaban for stroke prevention. (2) Mass of right lung: Status: Acute Problem details: - incidental finding on 12/30/24 imaging - patient and daughter aware, will f/u with PCP (3) Thyroid nodule: Status: Acute Problem details: - incidentally noted on 12/30/24 imaging; patient aware and has had this worked up previously (benign) DS: Summary Hospital Course Hospital Course: Pt presented w/ lightheadedness, and had a new diagnosis of Afib, although history suggests she has had paroxysmal episodes in the past. Diltiazem drip initiated in the emergency room; patient converted to sinus rhythm during her stay. TTE done and is unremarkable. She was started on apixaban for stroke prevention. Status at Discharge Functional status at discharge: independent ambulation Overall status at discharge: patient is back to baseline Time Spent with Patient Time attestation: Total time spent providing and/or coordinating discharge services: Exam Narrative: Exam Narrative: Physical exam GENERAL: Comfortable, no acute distress. HEAD AND NECK: Atraumatic, normocephalic CARDIOVASCULAR: RRR. Normal S1, S2. No murmurs. RESPIRATORY: Clear to auscultation B/L. Good air entry B/L. No wheezes or rhonchi. NEUROLOGY: Alert, awake, oriented X 3. Normal speech. PSYCH: Normal mood, normal affect. Const: Vital Signs, click to edit/add: Vital Signs - 24 hr 12/30/24 14:02 12/30/24 14:31 12/30/24 14:42 Temperature 97.2 F L Pulse Rate 109 H 112 H Pulse Rate [Left A pical] Pulse Rate [Pulse Oximeter] 137 H Respiratory Rate 18 18 16 Blood Pressure 114/65 124/93 H Blood Pressure [Ri ght Arm] Blood Pressure [Ri ght Upper Arm] 136/89 Pulse Oximetry 97 98 Oxygen Delivery Me od Room Air 12/30/24 14:51 12/30/24 15:02 12/30/24 15:21 Temperature Pulse Rate 103 H 94 103 H Pulse Rate [Left A pical] Pulse Rate [Pulse Oximeter] Respiratory Rate 10 L 18 16 Blood Pressure 110/73 133/86 148/93 H Blood Pressure [Ri ght Arm] Blood Pressure [Ri ght Upper Arm] Pulse Oximetry 96 97 96 Oxygen Delivery Or thod 12/30/24 15:53 12/30/24 16:01 12/30/24 16:15 Temperature 97.3 F L Pulse Rate 110 H Pulse Rate [Left A pical] 122 H Pulse Rate [Pulse Oximeter] Respiratory Rate 18 16 16 Blood Pressure 131/96 H 126/102 H Blood Pressure [Ri ght Arm] 109/63 Blood Pressure [Ri ght Upper Arm] Pulse Oximetry 96 97 Oxygen Delivery [facility] Room Air 12/30/24 16:30 12/30/24 16:45 12/30/24 16:55 Temperature Pulse Rate 104 H Pulse Rate [Left A pical] 122 H 107 H Pulse Rate [Pulse Oximeter] Respiratory Rate Blood Pressure Blood Pressure [Ri ght Arm] 126/98 H 101/60 Blood Pressure [Ri ght Upper Arm] Pulse Oximetry Oxygen Delivery Or thod 12/30/24 17:00 12/30/24 17:02 12/30/24 17:15 Temperature Pulse Rate Pulse Rate [Left A pical] 116 H 118 H Pulse Rate [Pulse Oximeter] Respiratory Rate 16 Blood Pressure Blood Pressure [Ri ght Arm] 113/62 104/83 Blood Pressure [Ri ght Upper Arm] Pulse Oximetry Oxygen Delivery Or thod 12/30/24 17:30 12/30/24 17:45 12/30/24 18:00 Temperature Pulse Rate Pulse Rate [Left A pical] 107 H 109 H 118 H Pulse Rate [Pulse Oximeter] Respiratory Rate Blood Pressure Blood Pressure [Ri ght Arm] 136/99 H 108/81 122/85 Blood Pressure [Ri ght Upper Arm] Pulse Oximetry Oxygen Delivery Or thod 12/30/24 18:15 12/30/24 18:30 12/30/24 18:45 Temperature Pulse Rate Pulse Rate [Left A pical] 124 H 136 H 114 H Pulse Rate [Pulse Oximeter] Respiratory Rate Blood Pressure Blood Pressure [Ri ght Arm] 104/90 H 120/87 116/78 Blood Pressure [Ri ght Upper Arm] Pulse Oximetry Oxygen Delivery Or thod 12/30/24 19:00 12/30/24 19:15 12/30/24 19:30 Temperature Pulse Rate Pulse Rate [Left A pical] 101 H 89 67 Pulse Rate [Pulse Oximeter] Respiratory Rate Blood Pressure Blood Pressure [Ri ght Arm] 108/67 106/77 100/55 L Blood Pressure [Ri ght Upper Arm] Pulse Oximetry Oxygen Delivery Or thod 12/30/24 19:45 12/30/24 19:45 12/30/24 20:00 Temperature Pulse Rate 64 Pulse Rate [Left A pical] 65 65 Pulse Rate [Pulse Oximeter] Respiratory Rate Blood Pressure Blood Pressure [Ri ght Arm] 99/60 127/76 Blood Pressure [Ri ght Upper Arm] Pulse Oximetry Oxygen Delivery [facility] 12/30/24 20:15 12/30/24 20:30 12/30/24 20:45 Temperature 98.1 F Pulse Rate Pulse Rate [Left A pical] 62 61 63 Pulse Rate [Pulse Oximeter] Respiratory Rate 16 Blood Pressure Blood Pressure [Ri ght Arm] 106/58 L 105/55 L 102/52 L Blood Pressure [Ri ght Upper Arm] Pulse Oximetry 97 Oxygen Delivery [facility] Room Air 12/30/24 21:00 12/30/24 21:15 12/30/24 21:30 Temperature Pulse Rate Pulse Rate [Left A pical] 61 58 L 62 Pulse Rate [Pulse Oximeter] Respiratory Rate Blood Pressure Blood Pressure [Ri ght Arm] 108/55 L 114/53 L 105/54 L Blood Pressure [Ri ght Upper Arm] Pulse Oximetry Oxygen Delivery Or thod 12/30/24 21:45 12/30/24 22:00 12/30/24 22:15 Temperature Pulse Rate Pulse Rate [Left A pical] 65 62 62 Pulse Rate [Pulse Oximeter] Respiratory Rate Blood Pressure Blood Pressure [Ri ght Arm] 109/53 L 109/52 L 120/51 L Blood Pressure [Ri ght Upper Arm] Pulse Oximetry Oxygen Delivery Me thod 12/30/24 22:30 12/30/24 22:45 12/30/24 22:53 Temperature Pulse Rate Pulse Rate [Left A pical] 61 58 L 56 L Pulse Rate [Pulse Oximeter] Respiratory Rate Blood Pressure Blood Pressure [Ri ght Arm] 115/45 L 108/49 L 108/54 L Blood Pressure [Ri ght Upper Arm] Pulse Oximetry Oxygen Delivery Me thod 12/30/24 23:00 12/30/24 23:30 12/30/24 23:30 Temperature Pulse Rate 57 L Pulse Rate [Left A pical] 56 L Pulse Rate [Pulse Oximeter] Respiratory Rate 16 Blood Pressure Blood Pressure [Ri ght Arm] Blood Pressure [Ri ght Upper Arm] Pulse Oximetry 98 Oxygen Delivery Or thod Room Air 12/31/24 00:00 12/31/24 02:00 12/31/24 02:38 Temperature 97.9 F Pulse Rate Pulse Rate [Left A pical] 56 L 60 66 Pulse Rate [Pulse Oximeter] Respiratory Rate 16 16 14 Blood Pressure Blood Pressure [Ri ght Arm] 111/53 L 108/43 L 106/61 Blood Pressure [Ri ght Upper Arm] Pulse Oximetry 96 94 99 Oxygen Delivery Or thod Room Air Room Air Room Air 12/31/24 04:00 12/31/24 04:05 12/31/24 04:05 Temperature 97.9 F Pulse Rate 57 L Pulse Rate [Left A pical] 57 L 57 L Pulse Rate [Pulse Oximeter] Respiratory Rate 14 14 Blood Pressure Blood Pressure [Ri ght Arm] 113/61 Blood Pressure [Ri ght Upper Arm] Pulse Oximetry 98 Oxygen Delivery Or thod Room Air 12/31/24 06:00 12/31/24 06:45 12/31/24 07:35 Temperature 97.4 F L Pulse Rate 56 L Pulse Rate [Left A pical] 68 Pulse Rate [Pulse Oximeter] Respiratory Rate 16 16 Blood Pressure Blood Pressure [Ri ght Arm] 108/48 L Blood Pressure [Ri ght Upper Arm] Pulse Oximetry 95 95 Oxygen Delivery Me thod Room Air Room Air 12/31/24 07:55 12/31/24 07:59 12/31/24 08:00 Temperature 97.8 F Pulse Rate Pulse Rate [Left A pical] 65 65 Pulse Rate [Pulse Oximeter] Respiratory Rate 16 16 16 Blood Pressure Blood Pressure [Ri ght Arm] 148/57 H Blood Pressure [Ri ght Upper Arm] Pulse Oximetry 94 94 Oxygen Delivery Me thod Room Air Room Air 12/31/24 11:28 Temperature 97.7 F Pulse Rate Pulse Rate [Left A pical] 61 Pulse Rate [Pulse Oximeter] Respiratory Rate 16 Blood Pressure Blood Pressure [Ri ght Arm] 155/66 H Blood Pressure [Ri ght Upper Arm] Pulse Oximetry 98 Oxygen Delivery Me thod Room Air DS: Data Data Completed and Pending Labs on day of discharge: Labs from last 24 hours 12/31/24 12/30/24 12/30/24 06:30 16:30 15:41 WBC 6.52 RBC 5.13 Hgb 14.0 Hct 43.7 MCV 85 MCH 27 MCHC 32 RDW Coeff of Joselito 14.3 Plt Count 242 Neut % (Auto) 50.4 Lymph % (Auto) 37.9 Moore % (Auto) 9.5 Eos % (Auto) 1.5 Baso % (Auto) 0.5 Neut # (Auto) 3.29 Lymph # (Auto) 2.47 Moore # (Auto) 0.60 Eos # (Auto) 0.10 Baso # (Auto) 0.03 Abs Immat Gran (auto) 0.01 Imm/Tot Granulo (auto) 0.2 Sodium 139 Potassium 4.3 Chloride 108 Carbon Dioxide 30 Anion Gap 1 L BUN 22 Creatinine 0.7 Estimated Creat Clear 40.72 Estimated GFR 85 Glucose 105 Hemoglobin A1c Calcium 8.7 Magnesium Total Bilirubin Direct Bilirubin AST ALT Alkaline Phosphatase NT-Pro-B Natriuret Pep Total Protein Albumin TSH Lab Acknowledgement Test Added Test Added POC Troponin I 12/30/24 12/30/24 12/30/24 14:48 14:27 14:10 WBC 7.81 RBC 5.82 H Hgb 16.1 H Hct 48.8 MCV 84 MCH 28 MCHC 33 RDW Coeff of Joselito 13.9 Plt Count 253 Neut % (Auto) 69.6 Lymph % (Auto) 21.4 Moore % (Auto) 7.6 Eos % (Auto) 0.8 Baso % (Auto) 0.5 Neut # (Auto) 5.44 Lymph # (Auto) 1.67 Moore # (Auto) 0.60 Eos # (Auto) 0.06 Baso # (Auto) 0.04 Abs Immat Gran (auto) 0.01 Imm/Tot Granulo (auto) 0.1 Sodium 137 Potassium 4.4 Chloride 102 Carbon Dioxide 26 Anion Gap 9 BUN 20 Creatinine 0.8 Estimated Creat Clear 39.20 Estimated GFR 73 Glucose 115 Hemoglobin A1c 5.5 Calcium 9.8 Magnesium 2.1 Total Bilirubin 0.7 Direct Bilirubin 0.2 AST 38 H ALT 30 Alkaline Phosphatase 111 NT-Pro-B Natriuret Pep 325 H Total Protein 7.3 Albumin 4.2 TSH 0.695 Lab Acknowledgement POC Troponin I 0.01 Discharge Plan Discharge Disposition: Home w/ Parent or Adult Date of Admission: 12/30/24 16:15 Attending Provider on Discharge: Jami Magallon Primary Care Provider: Eileen Meek Anticipated Discharge Date/Time: 12/31/24 11:19 Discharge Medications: New Eliquis 5 mg Tablet 5 mg PO BID 30 Days Qty: 60 0RF Continued alendronate 70 mg tablet 70 mg PO .SATURDAY Rx Instructions: WEEKLY ON SATURDAY multivitamin [Multiple Vitamins] Tablet 1 tab PO DAILY loratadine 10 mg tablet 10 mg PO DAILY PreserVision AREDS 4,296 mcg-226 mg-90 mg capsule 1 cap PO BID naproxen sodium [Aleve] 220 mg tablet 220 mg PO DAILY PRN Patient Comments: uses prior to exercise or for headaches acetaminophen 500 mg tablet 500 - 1,000 mg PO Q6H PRN Patient Comments: uses prior to exercise or for headaches Discontinued aspirin 81 mg tablet 81 mg PO HS Discharge Orders: Discharge Order (Routine); Ordered 12/31/24 Ordered By: Jami Magallon Patient Education: Apixaban (By mouth) (Eliquis), A-fib (Atrial Fibrillation) (DC) Additional Instructions: -you have a new diagnosis of atrial fibrillation, but your heart rate came back to normal to low normal (AFib converted). You need to follow-up with your primary care physician and discuss the need to start you on medications to control your heart beat as by the time of your discharge from the hospital your heart rate was low in the 50s and lower 60s beat per minute and you declined prescribed being you a p.r.n. medication and prefer to talk to your primary care physician to find out if your heart rate would need control by medications. -you have been started on blood thinner apixaban 5 mg that you need to take twice daily to prevent strokes -you need to discuss the lung mass that was found by chance on imaging with your primary care physician as you will need follow-up and maybe referral to a specialist for diagnosis. -you need to follow-up your thyroid nodule if needed, you mentioned it is already done. -please do not hesitate to visit an urgent care unit if you have any signs or symptoms. Activity Level: Activity as Tolerated Discharge Diet: Heart Healthy (2 gm sodium, low fat) Follow Up Appointments: Eileen Meek MD [Primary Care Provider, [facility]] Referral Note: 5-7 days follow up Problems: Atrial fibrillation with rapid ventricular response; Mass of right lung; Thyroid nodule Forms: Patient Belongings, [facility] Info Instructions Discharge Comments: Indication: NEW A-FIB Technique: CTA chest, pulmonary embolism protocol, utilizing 95 mL Isovue 370 IV contrast Comparison: None Findings: Slightly enlarged, heterogeneously enhancing right thyroid gland with a few punctate calcifications with no discretely imaged nodule. There are few small subcarinal lymph nodes without pathologic enlargement. No pathologically enlarged lymph nodes throughout the thorax. The heart is normal in size. No CT evidence of acute right heart strain. No pericardial effusion. Coronary artery calcifications. The thoracic aorta and pulmonary artery are normal in caliber. There is no pulmonary embolism. No focal airspace consolidation, pleural effusion, or pneumothorax. Trace bibasilar atelectasis. Spiculated pulmonary nodule in the posterolateral aspect of the right lower lobe measuring approximately 1.5 centimeters AP x 1.9 centimeters transverse by 2.0 centimeters craniocaudal (series number 4, image 115; series number 6, image 184). The airways are clear. The imaged upper abdomen is without acute abnormality. Cholelithiasis. The soft tissues and bones are unremarkable. Impression: 1. Spiculated pulmonary nodule in the posterolateral aspect of the right lower lobe measuring up to 2.0 centimeters in greatest dimension, concerning for primary lung malignancy. Recommend outpatient consultation with pulmonology and direct tissue sampling versus PET-CT. 2. No CT evidence of an acute process involving the thorax; specifically, no pulmonary embolism. 3. There are few small subcarinal lymph nodes without pathologic enlargement, indeterminate. No pathologically enlarged lymph nodes throughout the thorax. 4. Slightly enlarged, heterogeneously enhancing right thyroid gland with a few punctate calcifications with no discretely imaged nodule. This can be further assessed with an outpatient thyroid ultrasound if not recently performed. Please note that all CT scans at this facility use dose modulation, iterative reconstruction, and/or weight-based dosing when appropriate to reduce radiation dose to as low as reasonably achievable. Dictated by Cleve Palencia MD @ 12/30/2024 4:11:29 PM ----- ADDENDUM ----- Report was received by Dr. Ronald Dodson @ 4:14 pm on 12/30/2024. Dictated by Cleve Palencia MD @ Dec 30 2024 4:20PM (Electronically Signed) For Patients: As a result of the Cures Act, medical imaging exams and procedure reports are released immediately into your electronic medical record. You may view this report before your referring provider. If you have questions, please contact your health care provider. Indication: NEW A-FIB Technique: CTA chest, pulmonary embolism protocol, utilizing 95 mL Isovue 370 IV contrast Comparison: None Findings: Slightly enlarged, heterogeneously enhancing right thyroid gland with a few punctate calcifications with no discretely imaged nodule. There are few small subcarinal lymph nodes without pathologic enlargement. No pathologically enlarged lymph nodes throughout the thorax. The heart is normal in size. No CT evidence of acute right heart strain. No pericardial effusion. Coronary artery calcifications. The thoracic aorta and pulmonary artery are normal in caliber. There is no pulmonary embolism. No focal airspace consolidation, pleural effusion, or pneumothorax. Trace bibasilar atelectasis. Spiculated pulmonary nodule in the posterolateral aspect of the right lower lobe measuring approximately 1.5 centimeters AP x 1.9 centimeters transverse by 2.0 centimeters craniocaudal (series number 4, image 115; series number 6, image 184). The airways are clear. The imaged upper abdomen is without acute abnormality. Cholelithiasis. The soft tissues and bones are unremarkable. Impression: 1. Spiculated pulmonary nodule in the posterolateral aspect of the right lower lobe measuring up to 2.0 centimeters in greatest dimension, concerning for primary lung malignancy. Recommend outpatient consultation with pulmonology and direct tissue sampling versus PET-CT. 2. No CT evidence of an acute process involving the thorax; specifically, no pulmonary embolism. 3. There are few small subcarinal lymph nodes without pathologic enlargement, indeterminate. No pathologically enlarged lymph nodes throughout the thorax. 4. Slightly enlarged, heterogeneously enhancing right thyroid gland with a few punctate calcifications with no discretely imaged nodule. This can be further assessed with an outpatient thyroid ultrasound if not recently performed. Please note that all CT scans at this facility use dose modulation, iterative reconstruction, and/or weight-based dosing when appropriate to reduce radiation dose to as low as reasonably achievable. Dictated by Cleve Palencia MD @ 12/30/2024 4:11:29 PM
--- NOTE | 2024-12-31 13:19 | PC.NURSE ---
Discharge/ pt has been very pleasant. Pt alert and oriented x4 no pain. . Afebrile. Pt's tele has been NSR. she is eating, drinking and voiding with no problems. went over discharge packet with pt and daughter. went over medication. appointment. instructions and educations/. pt went over and signed persona; belonging sheet. SL was d/c. tele was d/c. she got a w/c ride out
== END 2024-12-31 12:00 | disposition home or self-care (01) | DRG 310 ==
LOC: ED 15:24 → MEDSURG 16:15
PROVIDERS: Admitting Provider Family Medicine; Emergency Provider Family Medicine; Visit Provider Family Medicine
DX: I48.91 Unspecified atrial fibrillation (principal); E04.1 Nontoxic single thyroid nodule; R91.8 Other nonspecific abnormal finding of lung field; E78.5 Hyperlipidemia, unspecified; M81.0 Age-related osteoporosis without current pathological fracture; Z79.82 Long term (current) use of aspirin
CPT/HCPCS: 36415; 71045; 71275; 80048; 80076; 83036; 83735; 83880; 84443; 84484; 85025; 93005; 93306; 94761; 99285; A9270; J1650; J3475; J3490; J7030; Q9967